=== PATIENT | female | born 1970 | race Caucasian/White ===

== ENCOUNTER 2020-03-03 12:21 | Outpatient (CLI) | payer OTHER, SELFPAY ==
[2020-03-03 14:13] LABS: Basophils Percent Auto 0.2 % (0.2-1.2); Eosinophils Absolute Auto 0.3 K/mm3 (0-0.3); Eosinophils Percent Auto 3.6 % (0-4.4); Hematocrit 41.2 % (37.0-47.0); Hemoglobin 13.4 g/dL (12.0-15.0); Immature Granulocyte Absolute 0.03 K/mm3 (0.00-0.031); Immature Granulocyte Percent A 0.4 % (0-0.5); Lymphocytes Absolute Auto 2.77 K/mm3 (0.9-3.2); Lymphocytes Percent Auto 33.5 % (18.3-44.2); Mean Corpuscular HGB Conc 32.5 g/dl (32-36); Mean Corpuscular Volume 101.5 fl (80-100); Mean Platelet Volume 9.1 fl (7.4-10.4); Monocytes Absolute Auto 0.7 K/mm3 (0.1-0.6); Neutrophils Absolute Auto 4.5 K/mm3 (1.3-6.7); Neutrophils Percent Auto 54.3 % (45.5-73.1); Platelet Count Result 266 k/mm3 (150-375); Red Blood Count 4.06 M/mm3 (4.2-5.4); Red Cell Distribution Width 12.2 % (11.5-14.5); White Blood Count 8.3 K/mm3 (4.5-10.0)
[2020-03-03 14:24] LABS: Alanine Aminotransferase 20 U/L (4-35); Albumin Level 4.8 g/dL (3.5-5.1); Alkaline Phosphatase 62 U/L (38-126); Aspartate Amino Transferase 37 U/L (14-36); Bilirubin,Total 0.6 mg/dL (0.2-1.3); Blood Urea Nitrogen 19 mg/dL (7-17); Calcium 9.8 mg/dL (8.4-10.2); Carbon Dioxide 30 mmol/L (22-30); Chloride 102 mmol/L (98-107); Cholesterol 214 mg/dL (0-200); Estimated Glomerular Filt Rate > 60; Glucose 148 mg/dL (65-105); HDL Direct 61 mg/dL; Sodium 139 mmol/L (137-145); Triglycerides 191 mg/dL (<150)
[2020-03-03 14:34] LABS: LDL Cholesterol Direct 116 mg/dL
== END 2020-03-03 12:22 | disposition home or self-care (01) ==
LOC: ANHLAB 12:25
PROVIDERS: PCP Internal Medicine; Visit Provider Nurse Practitioner
DX: Z13.228 Encounter for screening for other metabolic disorders (principal); Z13.220 Encounter for screening for lipoid disorders
CPT/HCPCS: 36415; 80053; 80061; 85025

== ENCOUNTER 2020-03-09 15:23 | Outpatient (CLI) | payer OTHER, SELFPAY ==
[2020-03-09 16:39] LABS: Thyroid Stimulating Hormone 0.473 uIU/mL (0.465-4.680)
[2020-03-09 16:59] LABS: Free T4 Free Thyroxine 0.83 ng/mL (0.78-2.19); Vitamin D 25 Hydroxy 64.9 ng/mL
[2020-03-09 17:03] LABS: Hemoglobin A1C 6.1 % (<5.7)
== END 2020-03-09 15:24 | disposition home or self-care (01) ==
PROVIDERS: PCP Internal Medicine; Visit Provider Clinical Nurse Specialist
DX: R53.83 Other fatigue (principal); R73.09 Other abnormal glucose
CPT/HCPCS: 36415; 82306; 83036; 84439; 84443

== ENCOUNTER → 2020-07-18 18:10 | Outpatient (CLI) | payer OTHER, SELFPAY ==
--- NOTE | ~2020-07-18 | XR_ITS ---
XR_CERV2-3V_CR DATE: 07/18/2020 18:58 INDICATION: Neck pain TECHNIQUE: Standing AP, open-mouth, lateral, swimmer views COMPARISON: None FINDINGS: There is straightening and mild reversal of cervical curvature. C1 and C2 are normally aligned and the odontoid process is intact. No fracture or dislocation or locked facet or prevertebral soft tissue swelling. There is minimal anterolisthesis at C2-3. There is mild loss of interspace height at C4-5. There is moderate degenerative disc disease at C5-6. There is moderately severe degenerative disease at C6-7. There is uncovertebral joint spurring at C5-C6 and particularly C6-7. IMPRESSION: Straightening/mild reversal of cervical curvature Multilevel degenerative disc disease Reviewed, dictated and finalized at Location A. Reviewed, dictated and finalized at location A. S CUTTER
== END ==
PROVIDERS: Visit Provider Chiropractor
DX: M47.812 Spondylosis without myelopathy or radiculopathy, cervical region (principal)
CPT/HCPCS: 72040

== ENCOUNTER 2020-08-15 17:21 | Outpatient (CLI) | payer OTHER, SELFPAY ==
--- NOTE | ~2020-08-15 | MM_ITS ---
EXAMINATION: MM screening jose antonio BI w lazaro HISTORY: Screening TECHNIQUE: Craniocaudal and mediolateral oblique 3-D tomosynthesis images were obtained and synthetic 2-D images were generated. CAD analysis was submitted and interpreted. COMPARISON: No prior mammogram is available for comparison at this institution. BREAST PARENCHYMAL COMPOSITION: There are scattered areas of fibroglandular density. FINDINGS: There is no evidence of suspicious mass, calcification, or architectural distortion to sugg est malignancy in either breast. There has been no suspicious interval change. IMPRESSION: 1. No mammographic evidence of malignancy. 2. Recommend routine screening mammography in one year. BI-RADS Category 1: Negative Reviewed, dictated and finalized at location A. SALES CONSULTANT
== END 2020-08-15 17:22 | disposition home or self-care (01) ==
PROVIDERS: Visit Provider Obstetrics & Gynecology Gynecology
DX: Z12.31 Encounter for screening mammogram for malignant neoplasm of breast (principal)
CPT/HCPCS: 77063; 77067

== ENCOUNTER → 2021-07-19 09:48 | Outpatient (CLI) | payer OTHER, SELFPAY ==
--- NOTE | ~2021-07-19 | US_ITS ---
US thyroid INDICATION: Thyroid goiter TECHNIQUE: Real-time sonographic images of the thyroid gland were obtained. COMPARISON: No prior studies for comparison. FINDINGS: The right thyroid lobe measures 4.3 x 1.1 x 1.2 cm. The left thyroid lobe measures 3.9 x 1 .1 x 1 cm. There is normal echotexture and echogenicity throughout the thyroid gland. No discrete nod ules identified. Normal vascular flow is present. IMPRESSION: 1. Normal thyroid without discrete nodule or abnormal vascularity. Reviewed, dictated and finalized at location A. F CLERK
== END ==
PROVIDERS: PCP Internal Medicine; Visit Provider Internal Medicine Endocrinology, Diabetes & Metabolism
DX: E04.9 Nontoxic goiter, unspecified (principal)
CPT/HCPCS: 76536

== ENCOUNTER 2021-09-12 15:44 | Outpatient (CLI) | payer OTHER, SELFPAY ==
--- NOTE | ~2021-09-12 | MM_ITS ---
EXAMINATION: MM screening jose antonio BI w lazaro HISTORY: Screening mammogram, family history of breast cancer in her mother and sister. TECHNIQUE: Craniocaudal and mediolateral oblique 3-D tomosynthesis images were obtained and synthetic 2-D images were generated. CAD analysis was submitted and interpreted. COMPARISON: 08/15/2020, 05/21/2019, 05/26/2018, 05/15/2018 BREAST PARENCHYMAL COMPOSITION: The breasts are heterogeneously dense, which may obscure small masses . FINDINGS: There is no evidence of suspicious mass, calcification, or architectural distortion to sugg est malignancy in either breast. There has been no suspicious interval change. IMPRESSION: 1. No mammographic evidence of malignancy. 2. Recommend routine screening mammography in one year. BI-RADS Category 1: Negative Reviewed, dictated and finalized at location A. AND DIE ENGINEER
== END 2021-09-12 15:45 | disposition home or self-care (01) ==
LOC: ANHIMG 15:47
PROVIDERS: PCP Internal Medicine; Visit Provider Obstetrics & Gynecology Gynecology
DX: Z12.31 Encounter for screening mammogram for malignant neoplasm of breast (principal)
CPT/HCPCS: 77063; 77067

== ENCOUNTER 2022-11-14 14:39 | Outpatient (CLI) | payer OTHER, SELFPAY ==
--- NOTE | ~2022-11-14 | MM_ITS ---
EXAMINATION: MM screening jose antonio BI w lazaro HISTORY: Screening mammogram, family history of breast cancer in her mother and sister. TECHNIQUE: Craniocaudal and mediolateral oblique 3-D tomosynthesis images were obtained and synthetic 2-D images were generated. CAD analysis was submitted and interpreted. COMPARISON: 09/12/2021, 08/15/2020, 05/21/2019 BREAST PARENCHYMAL COMPOSITION: The breasts are heterogeneously dense, which may obscure small masses . FINDINGS: No suspicious mass, calcification, or architectural distortion are identified in either kathy ast to suggest malignancy. There has been no suspicious interval change. IMPRESSION: 1. No mammographic evidence of malignancy. 2. Recommend routine screening mammography in one year. BI-RADS Category 1: Negative Reviewed, dictated and finalized at location A. GER CASE
== END 2022-11-14 14:40 | disposition home or self-care (01) ==
PROVIDERS: PCP Internal Medicine; Visit Provider Obstetrics & Gynecology Gynecology
DX: Z12.31 Encounter for screening mammogram for malignant neoplasm of breast (principal)
CPT/HCPCS: 77063; 77067

== ENCOUNTER 2023-06-26 10:36 | Outpatient (CLI) | payer OTHER, SELFPAY ==
--- NOTE | ~2023-06-26 | MMUS_ITS ---
EXAMINATION: MM diagnostic jose antonio LT w lazaro, US breast LT limited HISTORY: Left breast pain TECHNIQUE: Additional 3-D tomosynthesis images of the left breast were performed and synthetic 2-D im ages were generated. CAD analysis was submitted and interpreted. High resolution Limited left breast ultrasound was performed. COMPARISON: Comparison to multiple prior studies sequentially, with oldest reviewed study dated 03/2018. BREAST PARENCHYMAL COMPOSITION: Breast composed of scattered areas of fibroglandular density FINDINGS: MAMMOGRAPHIC FINDINGS: There are no suspicious masses, calcifications or architectural distortion in the left breast to sugg est malignancy. ULTRASOUND: Limited left breast ultrasound: Normal heterogeneous echotexture without focal solid or cystic mass. IMPRESSION: 1. No evidence for malignancy in the left breast. 2. Routine yearly screening mammogram and regular clinical breast examination are recommended. BI-RADS Category 1: Negative Reviewed, dictated and finalized at location A. IMPRESSION: 1. No evidence for malignancy in the left breast. 2. Routine yearly screening mammogram and regular clinical breast examination a re recommended. BI-RADS Category 1: Negative
[2023-06-26 12:24] LABS: Hematocrit 40.8 % (37.0-47.0); Hemoglobin 13.4 g/dL (12.0-15.0); Mean Corpuscular HGB Conc 32.8 g/dl (32-36); Mean Corpuscular Hemoglobin 33.6 pg (26-34); Mean Corpuscular Volume 102.3 fl (80-100); Mean Platelet Volume 8.8 fl (7.4-10.4); Platelet Count Result 284 k/mm3 (150-375); Red Blood Count 3.99 M/mm3 (4.2-5.4); Red Cell Distribution Width 13.1 % (11.5-14.5); White Blood Count 6.2 K/mm3 (4.5-10.0)
[2023-06-26 12:39] LABS: Alanine Aminotransferase 31 U/L (6-35); Alkaline Phosphatase 60 U/L (38-126); Anion Gap 9 mmol/L (8-16); Aspartate Amino Transferase 36 U/L (14-36); Bilirubin,Total 0.6 mg/dL (0.2-1.3); Blood Urea Nitrogen 21 mg/dL (7-17); Calcium 9.8 mg/dL (8.4-10.2); Carbon Dioxide 29 mmol/L (22-30); Chloride 100 mmol/L (98-107); Cholesterol 285 mg/dL (0-200); Estimated Glomerular Filt Rate > 60; Glucose 137 mg/dL (65-110); HDL Direct 88 mg/dL; Potassium 4.6 mmol/L (3.4-5.0); Sodium 138 mmol/L (137-145); Triglycerides 98 mg/dL (<150)
[2023-06-26 12:50] LABS: LDL Cholesterol Direct 143 mg/dL
[2023-06-26 13:08] LABS: Thyroid Stimulating Hormone 0.119 uIU/mL (0.465-4.680)
[2023-06-26 13:17] LABS: Free T4 Free Thyroxine 0.97 ng/mL (0.78-2.19)
[2023-06-26 13:48] LABS: Folic Acid > 20.0 ng/mL (2.76->20)
[2023-06-27 05:55] LABS: Hemoglobin A1C 5.6 % (<5.7)
== END 2023-06-26 10:37 | disposition home or self-care (01) ==
PROVIDERS: PCP Internal Medicine; Visit Provider Nurse Practitioner
DX: N64.4 Mastodynia (principal); E55.9 Vitamin D deficiency, unspecified; Z01.419 Encounter for gynecological examination (general) (routine) without abnormal findings
CPT/HCPCS: 36415; 76642; 77061; 77065; 80053; 80061; 82306; 82607; 82746; 83036; 84439; 84443; 85027; G0279

== ENCOUNTER 2024-01-29 15:40 | Outpatient (CLI) | payer OTHER, SELFPAY ==
--- NOTE | ~2024-01-29 | MM_ITS ---
EXAMINATION: MM screening jose antonio BI w lazaro HISTORY: Screening TECHNIQUE: Craniocaudal and mediolateral oblique 3-D tomosynthesis images were obtained and synthetic 2-D images were generated. CAD analysis was submitted and interpreted. COMPARISON: Comparison to multiple prior studies sequentially, with oldest reviewed study dated 05/21. BREAST PARENCHYMAL COMPOSITION: Not dense: There are scattered areas of fibroglandular density. FINDINGS: There are developing asymmetries bilaterally in the right breast with possible architectura l distortion superiorly on MLO view. The left breast is stable without evidence for malignancy. IMPRESSION: 1. Developing right breast asymmetries. 2. Additional mammographic views and possible breast ultrasound are recommended. BI-RADS Category 0: Incomplete: Needs additional imaging evaluation. Reviewed, dictated and finalized at location A. IMPRESSION: 1. Developing right breast asymmetries. 2. Additional mammographic views and possible breast ultrasound are recommended . BI-RADS Category 0: Incomplete: Needs additional imaging evaluation.
== END 2024-01-29 15:41 | disposition home or self-care (01) ==
PROVIDERS: PCP Internal Medicine; Visit Provider Obstetrics & Gynecology Gynecology
DX: Z12.31 Encounter for screening mammogram for malignant neoplasm of breast (principal); R92.8 Other abnormal and inconclusive findings on diagnostic imaging of breast
CPT/HCPCS: 77063; 77067

== ENCOUNTER 2024-03-05 10:51 | Outpatient (CLI) | payer OTHER, SELFPAY ==
--- NOTE | ~2024-03-05 | MM_ITS ---
EXAMINATION: MM diagnostic jose antonio RT w lazaro HISTORY: Asymmetric density right breast TECHNIQUE: Additional 3-D tomosynthesis spot compression images of the right breast were performed an d synthetic 2-D images were generated. CAD analysis was submitted and interpreted. COMPARISON: 01/29/2024, 11/14/2022, 09/12/2021 FINDINGS: There are scattered fibroglandular densities. There is a stable small circumscribed mass at the outer, lower right breast dating back to 2021, comp atible with benign finding. No other mass lesion or distortion seen. No suspicious microcalcification . A second area of asymmetric density effaces with spot compression. IMPRESSION: No mammographic evidence for malignancy. BI-RADS Category 2: Benign finding(s). Reviewed, dictated and finalized at location .
== END 2024-03-05 10:52 | disposition home or self-care (01) ==
LOC: ANHIMG 10:53
PROVIDERS: PCP Internal Medicine; Visit Provider Obstetrics & Gynecology Gynecology
DX: R92.8 Other abnormal and inconclusive findings on diagnostic imaging of breast (principal)
CPT/HCPCS: 77061; 77065; G0279

== ENCOUNTER 2024-04-22 12:26 | Outpatient (CLI) | payer OTHER, SELFPAY ==
--- NOTE | ~2024-04-22 | XR_ITS ---
XR_CERV2-3V_CR Ordering provider: GLO Dominguez History: . M54.12 - Radiculopathy, cervical region . Comparison: July 18, 2020 FINDINGS: VERTEBRAL BODIES: Normal height and alignment. No visible fracture or subluxation. The dens is intact . Degenerative changes of the spine. DISK SPACES: Narrowing of the disc C5-C6 and C6-C7. Uncovertebral joint osteoarthritic changes at the same 2 levels. Multilevel facet joint disease. PARASPINOUS SOFT TISSUES: No prevertebral soft tissue swelling. IMPRESSION: No acute osseous abnormality cervical spine. Multilevel degenerative disc disease. Reviewed, dictated and finalized at location A.
== END 2024-04-22 12:27 ==
PROVIDERS: PCP Clinical Nurse Specialist; Visit Provider Clinical Nurse Specialist
DX: M54.12 Radiculopathy, cervical region (principal); M50.30 Other cervical disc degeneration, unspecified cervical region
CPT/HCPCS: 72040

== ENCOUNTER 2025-02-18 10:02 | Outpatient (CLI) | payer OTHER, SELFPAY ==
--- NOTE | ~2025-02-18 | MM_ITS ---
EXAMINATION: MM screening jose antonio BI w lazaro HISTORY: Screening TECHNIQUE: Craniocaudal and mediolateral oblique 3-D tomosynthesis images were obtained and synthetic 2-D images were generated. CAD analysis was submitted and interpreted. COMPARISON: Comparison to multiple prior studies sequentially, with oldest reviewed study dated 04/2020. BREAST PARENCHYMAL COMPOSITION: Not dense: There are scattered areas of fibroglandular density. FINDINGS: There is no evidence of suspicious mass, calcification, or architectural distortion to sugg est malignancy in either breast. There has been no suspicious interval change. IMPRESSION: 1. No mammographic evidence of malignancy. 2. Recommend routine screening mammography in one year. BI-RADS Category 1: Negative Reviewed, dictated and finalized at location B.
--- OUTSIDE RECORDS SUMMARY | 2025-02-18 10:13 | XMS_ITS | Clinical Summary ---
Author Organization [facility] Address [address] [place] [address] Care Team Providers Care Broomcorn Scraper Name Role Phone Brennan Dubon DO Primary Care Provider [phone] Allergies Active Allergy Reactions Criticality Noted Date Comments Cefaclor Hives Medium Per chart records, has received amoxicillin and Augmentin before Seldane-D Hives Medium Medications buPROPion XL (WELLBUTRIN XL) 300 mg 24 hr tablet Take 1 tablet (300 mg total) by mouth daily Active spironolactone (ALDACTONE) 100 mg tablet Take 2 tablets (200 mg total) by mouth daily Takes 200 mg daily Active aspirin 81 mg enteric coated tablet Take 1 tablet (81 mg total) by mouth daily Taking bid post op knee scope 10/17/22 taking one daily Active gabapentin (NEURONTIN) 300 mg capsule Take 1 capsule (300 mg total) by mouth 3 (three) times a day 90 capsule 3 09/13/2023 Active meloxicam (Mobic) 15 mg tabletIndicatio ns:Osteoarthrit is Take 1 tablet (15 mg total) by mouth daily To be taken with food 90 tablet 2 10/17/2023 Active Active Problems Problem Noted Date Diagnosed Date Hyperlipidemia 08/24/2023 Post-traumatic osteoarthritis of one knee, left 08/24/2023 Bodies, loose, joint, knee, left 07/18/2023 Degenerative tear of lateral meniscus of left kn ee 07/18/2023 Post-traumatic osteoarthritis of left knee 07/18 Postoperative seroma of subc utaneous tissue after non-dermatologic procedure 09/11/2018 Overview (09/11/2018): Added automatically from request for surgery [id number] Localized adiposity 01/18/2014 Immunizations Immunization Administration Dates Next Due Influenza, Quadrivalent, Spl it, Preservative Free, Intramuscular 06/26/2018 Surgical History Surgery Date Site/Laterality Comments LUMBAR DISC SURGERY L5 MENISCECTOMY Bilateral LAPAROSCOPY for endometriosis Medical History Medical History Date Comments Hyperlipidemia Degenerative tear of lateral meniscus of left kn ee Post-traumatic osteoarthritis of one knee, left Family History Medical History Relation Name Comments Lung cancer Father Breast cancer Mother Anesthesia problems Neg Hx Relation Name Status Comments Father Mother Social History Tobacco Use Types Packs/Day Years Used Date Smoking Tobacco: Never Smokeless Tobacco: Never Tobacco Cessation:Counseling Given: Not Answered Alcohol Use Standard Drinks/Week Comments Yes 0 (1 standard drink = 0.6 oz pur e alcohol) couple drinks a month AUDIT-C Answer Date Recorded Q1: How often do you have a drink containing alc ohol? 2-4 times a month 08/28/2023 Q2: How many drinks containi ng alcohol do you have on a typical day when you are drinking? 3 or 4 08/28/2023 Q3: How often do you have si x or more drinks on one occasion? Never 08/28/2023 Personal Safety Answer Date Recorded Have you ever been in or are you currently in a harmful physical or emotional relationship or is someone making you feel afraid or unsafe? Denies 08/28/2023 Comments No Sex and Gender Information Value Date Recorded Sex Assigned at Not on file Legal Sex Female 4:16 AM MOTTLER OPERATOR Gender Identity Female 12/02/2018 9:28 AM CDT Sexual Orientation Not on file Obstetrics History Last Filed Vital Signs Vital Sign Reading Time Taken Comments Blood Pressure 136/74 08/28/2023 10:55 AM MOTTLER OPERATOR Pulse 83 08/28/2023 10:55 AM MOTTLER OPERATOR Temperature 36.8 C (98.3 F) 08/28/2023 9:27 AM MOTTLER OPERATOR Respiratory Rate 15 08/28/2023 10:55 AM MOTTLER OPERATOR Oxygen Saturation 100% 08/28/2023 10:55 AM MOTTLER OPERATOR Inhaled Oxygen Concentration - - Weight 82.1 kg (181 lb) 10/17/2023 10:19 AM MOTTLER OPERATOR stated Height 172.7 cm (5' 8) 10/17/2023 10:19 AM MOTTLER OPERATOR Body Mass Index 27.52 10/17/2023 10:19 AM MOTTLER OPERATOR Plan of Treatment Health Maintenance Due Date Last Done Comments Breast Cancer Screening-Mammogram 1971 Cervical Cancer Screening 1971 Colon Cancer Screening-Colonoscopy 1971 Depression Screening 1971 Hepatitis C Screening 1971 DTaP/Tdap/Td Vaccine (1 - Tdap) 1982 Hepatitis B Screening 1989 Regular Well Visit/Exam 18-64 1989 Zoster Vaccine (1 of 2) 2021 Influenza Vaccine (Season Ended) 2025 07/26/2022, 06/07/2020, 07/12/2018, Additional history exists Pneumococcal vaccine <65 Aged Out No longer eligible based on patient's age to complete this topic Insurance [facility] CLAIMS [facility] CLAIMS Care Teams Broomcorn Scraper Relationship Specialty Start Date End Date Brennan Dubon DO PCP - General 02/19/17
--- OUTSIDE RECORDS SUMMARY | 2025-02-18 10:13 | XMS_ITS | Clinical Summary ---
Author Organization [facility] Address [address] [place] [address] Phone Care Team Providers Care Call Or Contact Centre Team Leader Name Role Phone Brennan Dubon Primary Care Provider Allergies No known active allergies Medications buPROPion (WELLBUTRIN) 75 mg tablet Take 75 mg by mouth daily. Active cetirizine (ZyrTEC) 10 mg tablet Take 10 mg by mouth daily. Active ergocalciferol (VITAMIN D2) 50,000 unit capsule Take 2,000 Units by mouth daily. Active diphenhydrAMINE (BENADRYL) 25 mg tablet Take 25 mg by mouth every 6 hours as needed for Allergies. Active HYDROcodone-taylor taminophen (NORCO) 5-325 mg tabletIndicatio ns:Acute tear lateral meniscus, right, subsequent encounter Take 2 Tablets by mouth every 4 hours as needed for Pain, Moderate. Max Daily Amount: 12 Tablets 50 Tablet 12/17/2018 Active celecoxib (CeleBREX) 200 mg capsule Take 1 Capsule (200 mg) by mouth 2 times daily. 60 Capsule 12/17/2018 Active Active Problems Problem Noted Date Diagnosed Date Acute tear lateral meniscus, right, subsequent e ncounter 12/15/2018 Immunizations Immunization Administration Dates Next Due Influenza Seasonal Unspecified Formulation IM Social History Tobacco Use Types Packs/Day Years Used Date Smoking Tobacco: Never Smokeless Tobacco: Never Alcohol Use Standard Drinks/Week Comments Yes 0 (1 standard drink = 0.6 oz pur e alcohol) OCC Comments Unknown Sex and Gender Information Value Date Recorded Sex Assigned at Not on file Legal Sex Female 8:15 AM DISTRIBUTION ANALYST Gender Identity Not on file Sexual Orientation Not on file Last Filed Vital Signs Vital Sign Reading Time Taken Comments Blood Pressure 152/86 12/17/2018 6:25 PM CDT Pulse 74 12/17/2018 6:25 PM CDT Temperature 36.7 C (98.1 F) 12/17/2018 6:25 PM CDT Respiratory Rate 16 12/17/2018 6:25 PM CDT Oxygen Saturation 98% 12/17/2018 6:25 PM CDT Inhaled Oxygen Concentration - - Weight 98.9 kg (218 lb) 12/17/2018 10:09 AM CDT Height 172.7 cm (5' 8) 12/17/2018 10:09 AM CDT Body Mass Index 33.15 12/17/2018 10:09 AM CDT Plan of Treatment Health Maintenance Due Date Last Done Comments DTAP/TDAP/TD VACCINES (1 - Tdap) 1990 HEPATITIS B VACCINES (1 of 3 - 19+ 3-dose series) 09/10 HPV/Cotest (21-29) 1992 CERVICAL CANCER SCREENING 2001 HPV/Cotest (30-65) 2001 PAP SMEAR 2001 BREAST CANCER SCREENING 2011 COLORECTAL SCREENING 2016 Colorectal Cancer Screening 2016 FIT-DNA Q 3 years 2016 FIT/FOBT Q 1 year 2016 Flex Sig/CT Colonography Q 5 years 2016 ZOSTER VACCINE (1 of 2) 2021 INFLUENZA VACCINE (#1) 2024 07/12/2018 Medical Devices Implanted Type Area Senior Structural Engineer Device Identifier Shelf Expiration Date Model / Serial / Lot Iud Oral Insurance [facility] [place] [id number] [facility] Advance Directives For more information, please contact: [phone] * Full Code (Latest Code Status on File) Date Activated Date Inactivated Comments 12/17/2018 11:55 AM 12/17/2018 8:50 PM * Full Code Date Activated Date Inactivated Comments 12/17/2018 10:31 AM 12/17/2018 11:55 AM Care Teams Call Or Contact Centre Team Leader Relationship Specialty Start Date End Date Brennan Dubon DO [address] [id number] PCP - General Internal Medicine 12/17/18
--- OUTSIDE RECORDS SUMMARY | 2025-02-18 10:13 | XMS_ITS | Referral Summary ---
Author Organization [facility] Address [address] [place] [address] Care Team Providers Care Supercharge Repair Supervisor Name Role Phone Brennan Dubon DO Primary Care Provider [phone] Allergies Active Allergy Reactions Criticality Noted Date [...] (09/11/2018): Added automatically from request for surgery [id number] Localized adiposity 01/18/2014 Immunizations Immunization Administration Dates Next Due Influenza, Quadrivalent, Spl it, Preservative Free, Intramuscular 06/26/2018 Social History Tobacco Use Types Packs/Day Years [...] on file Legal Sex Female 4:16 AM GYM TEACHER Gender Identity Female 12/02/2018 9:28 AM CDT Sexual Orientation Not on file Last Filed Vital Signs Vital Sign Reading Time Taken Comments Blood Pressure 136/74 08/28/2023 10:55 AM GYM TEACHER Pulse 83 08/28/2023 10:55 AM GYM TEACHER Temperature 36.8 C (98.3 F) 08/28/2023 9:27 AM GYM TEACHER Respiratory Rate 15 08/28/2023 10:55 AM GYM TEACHER Oxygen Saturation 100% 08/28/2023 10:55 AM GYM TEACHER Inhaled Oxygen Concentration - - Weight 82.1 kg (181 lb) 10/17/2023 10:19 AM GYM TEACHER stated Height 172.7 cm (5' 8) 10/17/2023 10:19 AM GYM TEACHER Body Mass Index 27.52 10/17/2023 10:19 AM GYM TEACHER Plan of Treatment Not on file Insurance [facility] CLAIMS [facility] CLAIMS Care Teams Supercharge Repair Supervisor Relationship Specialty Start Date End Date Brennan Dubon DO PCP - General 02/19/17
--- OUTSIDE RECORDS SUMMARY | 2025-02-18 10:13 | XMS_ITS | Continuity of Care Document ---
Author Organization [facility] Address [address] [facility] [address] [place] [address] Phone Care Team Providers Care It Integration Architect Name Role Phone Lai Vizcarra MD Unavailable Unavailable Allergies, Adverse Reactions, Alerts Substance Reaction Status Criticality No Known Allergies Active No Inform ation Medications Medication Instructions Dosage Effective Dates (start - stop) Status Comments ibuprofen 200 mg capsule - Activ e Procedures Procedure Date POSTOP FOLLOW-UP VISIT KNEE ARTHROSCOPY/SURGERY OFFICE/OUTPATIENT VISIT EST OFFICE/OUTPATIENT VISIT NEW Advance Directives Directive Yes / No Effective Date File Name No Information Encounters Encounter Description Practice Location Reason(s) For Visit Diagnoses Date Provider Providers Copied on Encounter [facility], [address] [place] [address], [facility], [phone] [facility] [address] No Information 9 Carmita Hoyt. [address] [place] [address], [id number] . tel: [phone] [facility], [address] [place] [address], [id number], [place] tel:[phone] [facility] RT KNEE SCOPE 4\11\19 (chief complaint) Bucket-handle tear of lateral meniscus of right knee as current injury, subsequent encounter 9 Carmita Hoyt. [address] [place] [address], [id number] . tel: [phone] Referring Provider: Brennan Lopez, [address], [place], [address]. tel:[phone] [facility], [address] [place] [address], [facility], tel:[phone] [facility] Other tear of lateral meniscus, current injury, right knee, subsequent encounterBucke t-handle tear of lateral meniscus, current injury, right knee, initial encounter 9 Carmita Hoyt. [address] [place] [address], [id number] . tel: [phone] OFFICE/OUTPA TIENT VISIT [facility], [address] [place] [address], [facility], tel:[phone] [facility] Other tear of lateral meniscus, current injury, right knee, subsequent encounter 9 Carmita Hoyt. [address] [place] [address], [id number] . [phone] Referring Provider: Brennan Lopez, [address], [place], [address]. tel:[phone] OFFICE/OUTPA TIENT VISIT [facility], [address] [place] [address], [id number], tel:[phone] [facility] Body mass index (BMI) 32.0-32.9, adultElevated blood-pressure reading, w/o diagnosis of htnOther tear of lateral meniscus of right knee as current injury, initial encounter 9 Carmita Hoyt. [address] [place] [address], [id number] . tel: [phone] Referring Provider: Brennan Lopez, [address], [place], [address]. tel:[phone] Family History Family Member Type Diagnosis Age At Onset Mother Problem (finding) Alive and well Payers Payer name Insurance type Covered republican ID Linda brennan(s) [facility] [id number] Social History Type Description Quantity Date Captured Comments Alcohol Use Details Unknown Caffeine Use Details Unknown Tobacco Use Status No Information Smoking Status No Information Sex Female Chief Complaint And Reason For Visit No Information Reason For Referral Reason For Referral No Information Plan Of Treatment Date Type Action Status Goal Lifestyle education efrain g diet completed Referral Ordered: MRI ANY JT LXTR C-MATRL ordered Referral Ordered: RADEX KNE COMPL 4/MORE VIEWS RT ordered History Of Present Illness Encounter Date Complaint History Of Prese nt Illness RT KNEE SCOPE 4\11\19 Functional Status Date Functional Assessmen t No Information Instructions Date Instruction Additional Infor mation Apply ice as tolerated. Related to Bucket-handle tear of lateral meniscus of right knee as current injury, subsequent encounter Activity as tolerated Related to Bucket-handle tear of lateral meniscus of right knee as current injury, subsequent encounter Apply ice as tolerated. Related to Other tear of lateral meniscus, current injury, right knee, subsequent encounter Activity as tolerated Related to Other tear of lateral meniscus, current injury, right knee, subsequent encounter Giving encouragement to exercise Related to Body mass index (BMI) 32.0-32.9, adult Lifestyle education regarding di et Related to Body mass index (BMI) 32.0-32.9, adult Giving encouragement to exercise Related to Elevated blood-pressure reading, without diagnosis of hypertension Lifestyle education regarding diet (procedure) Related to Elevated blood-pressure reading, without diagnosis of hypertension Apply ice as tolerated. Related to Other tear of lateral meniscus of right knee as current injury, initial encounter Activity as tolerated Related to Other tear of lateral meniscus of right knee as current injury, initial encounter Assessments Type Assessment Date No Information Patient Care Teams Name Effective Dates (start - stop) Status Members No Information
== END 2025-02-18 10:03 | disposition home or self-care (01) ==
LOC: ANHIMG 10:04
PROVIDERS: PCP Clinical Nurse Specialist; Visit Provider Obstetrics & Gynecology Gynecology
DX: Z12.31 Encounter for screening mammogram for malignant neoplasm of breast (principal)
CPT/HCPCS: 77063; 77067

== ENCOUNTER 2025-03-18 11:21 | Outpatient (CLI) | payer OTHER, SELFPAY ==
--- OUTSIDE RECORDS SUMMARY | 2025-03-18 11:23 | XMS_ITS | Continuity of Care Document ---
Author Organization [facility] Address [address] [facility] [address] [place] [address] Phone Care Team Providers Care Braille Teacher Name Role Phone Lai Vizcarra MD Unavailable [...] Diagnoses Date Provider Providers Copied on Encounter [facility], [address] [place] [address], [facility], [phone] [facility] [address] No Information 9 Carmita Hoyt. [address] [place] [address], [id number] . tel: [phone] [facility], [address] [place] [address], [id number], [place] tel:[phone] [facility] RT KNEE SCOPE 4\11\19 (chief complaint) Bucket-handle tear of lateral meniscus of right knee as current injury, subsequent encounter 9 Carmita Hoyt. [address] [place] [address], [id number] . tel: [phone] Referring Provider: Brennan Lopez, [address], [place], [address]. tel:[phone] [facility], [address] [place] [address], [facility], tel:[phone] [facility] Other tear of lateral meniscus, current injury, right knee, subsequent encounterBucke t-handle tear of lateral meniscus, current injury, right knee, initial encounter 9 Carmita Hoyt. [address] [place] [address], [id number] . tel: [phone] OFFICE/OUTPA TIENT VISIT [facility], [address] [place] [address], [facility], tel:[phone] [facility] Other tear of lateral meniscus, current injury, right knee, subsequent encounter 9 Carmita Hoyt. [address] [place] [address], [id number] . tel:[phone] Referring Provider: Brennan Lopez, [address], [place], [address]. tel:[phone] OFFICE/OUTPA TIENT VISIT [facility], [address] [place] [address], [id number], tel:[phone] [facility] Body mass index (BMI) 32.0-32.9, adultElevated blood-pressure reading, w/o diagnosis of htnOther tear of lateral meniscus of right knee as current injury, initial encounter 9 Carmita Hoyt. [address] [place] [address], [id number] . tel: [phone] Referring Provider: Brennan Lopez, [address], [place], [address]. tel:[phone] Family History Family Member Type Diagnosis Age At Onset Mother Problem (finding) Alive and well Payers Payer name Insurance type Covered democrat ID Linda brennan(s) [facility] [id number] Social History Type Description Quantity Date Captured [...]
--- OUTSIDE RECORDS SUMMARY | 2025-03-18 11:23 | XMS_ITS | Clinical Summary ---
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 Gender Identity Not on file Sexual Orientation [...] (1 of 2) 2021 INFLUENZA VACCINE (#1) 2025 07/12/2018 Medical Devices Implanted Type Area E Commerce Project Manager Device Identifier Shelf Expiration Date Model / Serial / Lot Iud Oral Insurance [place] [id number] [facility] Advance Directives For more information, please contact: [phone] * Full Code (Latest Code Status on File) Date Activated Date Inactivated Comments 12/17/2018 11:55 AM 12/17/2018 8:50 PM * Full Code Date Activated Date Inactivated Comments 12/17/2018 10:31 AM 12/17/2018 11:55 AM Care Teams Sweatband Separator Relationship Specialty Start Date End Date Brennan Dubon DO [address] [id number] PCP - General Internal Medicine 12/17/18
--- OUTSIDE RECORDS SUMMARY | 2025-03-18 11:24 | XMS_ITS | Clinical Summary ---
Author Organization [facility] Address [address] [place] [address] Care Team Providers Care Carbide Die Maker Name Role Phone Unavailable Primary Care Provider Unavailabl e Allergies No known active allergies Medications albuterol sulfate HFA 108 (90 Base) MCG/ACT inhaler INL 1 TO 2 PFS PO Q 4 TO 6 H PRF SOB OR WHZ 0 Active buPROPion XL 150 MG 24 hr tablet 0 Active cetirizine 10 MG tablet Take 10 mg by mouth daily. Active estradiol 0.5 MG tablet Take 0.25 mg by mouth daily. 0 Active azithromycin 250 MG tabletIndication s:Acute bronchitis, unspecified organism Take 2 tablets by mouth on day one then 1 daily for four days. 6 tablet 0 Active albuterol sulfate HFA (VENTOLIN HFA) 108 (90 Base) MCG/ACT inhalerIndicatio ns:Acute bronchitis, unspecified organism Inhale 2 puffs into the lungs every 6 (six) hours as needed for Wheezing or Shortness of breath. 18 g 1 0 Active Active Problems Problem Noted Date Diagnosed Date Acute bronchitis, unspecified organism 0 Immunizations Immunization Administration Dates Next Due Flucelvax 6 Months+ (Prefill ed Syringe) 07/10/2017 Fluzone 6 Months+ Quad (0.5 mL Prefilled Syringe) 07/26/2022 Influenza (Generic) 07/12/2018 Influenza Adult (Generic) 06/25/2018,11/2015,07/10/2015,2013,08/20/2013,09/24/2012 Social History Tobacco Use Types Packs/Day Years Used Date Smoking Tobacco: Never Smokeless Tobacco: Never Tobacco Cessation:Counseling Given: No Comments Unknown Sex and Gender Information Value Date Recorded Sex Assigned at Not on file Legal Sex Female 10:59 AM CDT Gender Identity Not on file Sexual Orientation Not on file Last Filed Vital Signs Vital Sign Reading Time Taken Comments Blood Pressure 140/90 12/22/2019 12:35 PM CDT Pulse 74 12/22/2019 12:35 PM CDT Temperature 35.6 C (96 F) 12/22/2019 12:35 PM CDT Respiratory Rate 20 12/22/2019 12:35 PM CDT Oxygen Saturation 100% 12/22/2019 12:35 PM CDT Inhaled Oxygen Concentration - - Weight 94.3 kg (208 lb) 12/22/2019 12:35 PM CDT Height - - Body Mass Index - - Plan of Treatment Health Maintenance Due Date Last Done Comments Cervical Cancer Screening Pa p Smear (Age 30 to 64) Every 3 Years 1971 Colorectal Cancer Screening Colonoscopy (10 Years) 1971 Annual Physical 1974 Hepatitis C 1989 DTaP, Tdap and Td Vaccines ( 1 - Tdap) 1990 Hepatitis B Vaccines (1 of 3 - 19+ 3-dose series) 1990 Cervical Cancer Screening Pa p with HPV Testing (Age 30 to 64) Every 5 Years 2001 Cervical Cancer Screening with HPV 2001 Mammogram Screening 2011 Pneumococcal Vaccine: 50+ Ye ars (1 of 1 - PCV) 2021 Zoster Vaccines (1 of 2) 2021 COVID-19 Vaccine (1 - 2023-2 5 season) 2024 Meningococcal B Vaccine Aged Out No l onger eligible based on patient's age to complete this topic Meningococcal Vaccine Aged Out No lucy savana eligible based on patient's age to complete this topic RSV Immunizations Under 20 Months Aged Out No longer eligible based on patient's age to complete this topic Insurance [facility]
--- OUTSIDE RECORDS SUMMARY | 2025-03-18 11:24 | XMS_ITS | Clinical Summary ---
Author Organization [facility] Address [address] [place] [address] Care Team Providers Care Power Nut Runner Operator Name Role Phone Brennan Dubon DO Primary Care Provider [phone] Allergies Active Allergy Reactions Criticality Noted Date [...] (09/11/2018): Added automatically from request for surgery [id number] Localized adiposity 01/18/2014 Immunizations Immunization Administration Dates [...] on file Legal Sex Female 4:16 AM LEADERSHIP COACH Gender Identity Female 12/02/2018 9:28 AM CDT Sexual Orientation Not on file Obstetrics History Last Filed Vital Signs Vital Sign Reading Time Taken Comments Blood Pressure 136/74 08/28/2023 10:55 AM LEADERSHIP COACH Pulse 83 08/28/2023 10:55 AM LEADERSHIP COACH Temperature 36.8 C (98.3 F) 08/28/2023 9:27 AM LEADERSHIP COACH Respiratory Rate 15 08/28/2023 10:55 AM LEADERSHIP COACH Oxygen Saturation 100% 08/28/2023 10:55 AM LEADERSHIP COACH Inhaled Oxygen Concentration - - Weight 82.1 kg (181 lb) 10/17/2023 10:19 AM LEADERSHIP COACH stated Height 172.7 cm (5' 8) 10/17/2023 10:19 AM LEADERSHIP COACH Body Mass Index 27.52 10/17/2023 10:19 AM LEADERSHIP COACH Plan of Treatment Health Maintenance Due Date [...] patient's age to complete this topic Insurance [employer] CLAIMS [employer] Care Teams Power Nut Runner Operator Relationship Specialty Start Date End Date Brennan Dubon DO PCP - General 02/19/17
--- OUTSIDE RECORDS SUMMARY | 2025-03-18 11:24 | XMS_ITS | Referral Summary ---
Author Organization [facility] Address [address] [place] [address] Care Team Providers Care Review Appraiser Name Role Phone Brennan Dubon DO Primary Care Provider +1- [phone] Allergies Active Allergy Reactions Criticality Noted Date [...] (09/11/2018): Added automatically from request for surgery [id number] Localized adiposity 01/18/2014 Immunizations Immunization Administration Dates [...] on file Legal Sex Female 4:16 AM VENDING MECHANIC Gender Identity Female 12/02/2018 9:28 AM CDT Sexual Orientation Not on file Last Filed Vital Signs Vital Sign Reading Time Taken Comments Blood Pressure 136/74 08/28/2023 10:55 AM VENDING MECHANIC Pulse 83 08/28/2023 10:55 AM VENDING MECHANIC Temperature 36.8 C (98.3 F) 08/28/2023 9:27 AM VENDING MECHANIC Respiratory Rate 15 08/28/2023 10:55 AM VENDING MECHANIC Oxygen Saturation 100% 08/28/2023 10:55 AM VENDING MECHANIC Inhaled Oxygen Concentration - - Weight 82.1 kg (181 lb) 10/17/2023 10:19 AM VENDING MECHANIC stated Height 172.7 cm (5' 8) 10/17/2023 10:19 AM VENDING MECHANIC Body Mass Index 27.52 10/17/2023 10:19 AM VENDING MECHANIC Plan of Treatment Not on file Insurance [facility] CLAIMS [facility] CLAIMS Care Teams Review Appraiser Relationship Specialty Start Date End Date Brennan Dubon DO PCP - General 02/19/17
--- OUTSIDE RECORDS SUMMARY | 2025-03-18 11:24 | XMS_ITS | Data Portability ---
Author Organization [place] [employer], Main Office Address [address] [place] [address] Assessment No assessment recorded. Plan of Treatment Reminders Order Date Submit Date Provider Last Modified By Organization Details Last Modified Time Details Appointments None recorded. Lab estradiol, serum 2022 023 [employer] [facility], [address], [place], [address], 3 12:48:46 progesteron e, serum 2022 023 [employer] [facility], [address], [place], [address], 3 12:48:49 lh + FSH, serum 2022 023 [employer] [facility], [address], [place], [address], 3 12:48:47 cortisol, serum or plasma 2022 023 [employer] [facility], [address], [place], [address], 3 12:48:50 acth, plasma 2022 023 [employer] [facility], [address], [place], [address], 3 12:48:49 HbA1c (hemoglobin A1c), blood 2022 023 [employer] [facility], [address], [place], [address], 3 12:48:45 insulin, serum 2022 023 [employer] [facility], [address], [place], [address], 3 12:48:50 CMP, serum or plasma 2022 023 [employer] [facility], [address], [place], [address], 3 12:48:47 TSH + free T4, serum 2022 023 [employer] [facility], [address], [place], [address], 3 12:48:48 lipid panel, serum 2022 023 [employer] [facility], [address], [place], [address], 3 12:48:51 Referral None recorded. Procedures None recorded. Surgeries None recorded. Imaging None recorded. Medication Orders spironolact one 100 mg tablet 2022 023 [email or web address] [facility], [address] [place] [address], [address], 3 10:51:13 Patient TargetsNo targets recorded. Patient InstructionsNo instructions recorded. Reason for Referral None Reported. Results Created Date Observation Date Name Description Value Unit Range Abnormal Flag Note LastModifiedBy Organization Detail LastModifiedTime 07/28/20 21 07/30/2021 TSH+F REE T4 TSH 4.37 mIU/L normal Refer ence Range > or = 20 Years 0.40- 4.50 Pregn octavio Range s First trime ster 0.26- 2.66 Secon d trime ster 0.55- 2.73 Third trime ster 0.43- 2.91 Not Available [facility] [address] [place], [address], 07/30/2021 20:17:20 07/28/20 21 07/30/2021 TSH+F REE T4 T4, free 1.0 NG/dL 0.8-1. 8 normal Not Available [address], [address], 07/30/2021 20:17:20 07/28/20 21 07/30/2021 T3, FREE T3, free 2.9 pg/mL 2.3-4. 2 normal Not Available [address] [address] [place], [address], 07/30/2021 20:17:19 07/28/20 21 07/30/2021 VITAM IN B12/F OLATE , SERUM PANEL vitamin B12 495 pg/mL 200-11 00 normal Not Available [address], [address], 07/30/2021 20:17:18 07/28/20 21 07/30/2021 VITAM IN B12/F OLATE , SERUM PANEL folate, serum 12.7 NG/mL normal Refer ence Range Low: <3.4 Borde rline : 3.4-5 .4 Betty l: >5.4 Not Available [address], [address], 07/30/2021 20:17:18 07/28/20 21 07/30/2021 INSUL IN insulin 7.9 uIU/m L normal Refer ence Range < or = 19.6 Risk: Optim al < or = 19.6 Moder ate NA High >19.6 Adult cardi ovasc ular event risk categ ory cut point s (opti mal, moder ate, high) are based on [facility] popul ation data from 08/27 11. This insul in assay shows stron g cross -reac tivit y for some insul in analo gs (lisp ro, aspar t, and glarg ine) and much lower cross -reac tivit y with other s (dete ezra, gluli sine) . Not Available [facility] [address], [place], [address], 07/30/2021 20:17:17 07/28/20 21 07/30/2021 DHEA SULFA TE DHEA sulfate 156 mcg/d L 19-231 normal DHEA- S value s fall with advan cing age. For refer ence, the refer ence inter vals for 31-40 year old patie nts are: Male: 106-4 64 mcg/d L Femal e: 23-26 6 mcg/d L Not Available [facility] [address] [place], [address], 07/30/2021 20:17:16 07/28/20 21 07/30/2021 THYRO ID PEROX IDASE ANTIB ODIES thyroid peroxidase antibodies <1 IU/mL <9 normal Not Available [facility] [address] [place], [address], 07/30/2021 20:17:16 07/28/20 21 07/30/2021 ANGEL SCR, IFA, W/REF L TITER /FANTA TAMMIE/R HEUMA TOID ARTHR ITIS PANEL 1 ANGEL screen, ifa negati ve negati ve normal ANGEL IFA is a first line scree n for detec ting the prese nce of up to appro ximat demetrio 150 autoa ntibo dies in vario us autoi mmune disea ses. A negat vanessa ANGEL IFA resul t sugge sts an ANGEL-a ssoci ated autoi mmune disea se is not prese nt at this time, but is not defin itive . If there is high clini carline suspi cion for Sjogr en's syndr ome, testi ng for anti- SS-A/ Ro antib esther shoul d be consi dered . Anti- Nakita-1 antib esther shoul d be consi dered for clini gonsalo suspe cted infla mmato ry myopa joanne . AC-0: Negat vanessa Inter natio nal Conse nsus on ANGEL Patte rns (http s://d oi.or g/10. 1515/ cclm- 2017- 0052) For addit ional infor mike torrez e refer to http: //huy anuglo ics.c om/fa q/FAQ 177 (This link is being provi ded for infor ada torrez/ educmonie joseph l purpo ses only. ) Not Available [address] [address] [place], [address], 07/30/2021 20:17:15 07/28/20 21 07/30/2021 ANGEL SCR, IFA, W/REF L TITER /FANTA TAMMIE/R HEUMA TOID ARTHR ITIS PANEL 1 rheumatoid factor <14 IU/mL <14 normal Not Available [address] [address] [place], [address], 07/30/2021 20:17:15 07/28/20 21 07/30/2021 ANGEL SCR, IFA, W/REF L TITER /FANTA TAMMIE/R HEUMA TOID ARTHR ITIS PANEL 1 cyclic citrullinate d peptide (ccp) Ab (IgG) <16 units normal Refer ence Range Negat vanessa: <20 Weak Posit vanessa: 20-39 Moder ate Posit vanessa: 40-59 Stron g Posit vanessa: >59 Not Available [address] [address] [place], [address], 07/30/2021 20:17:15 07/28/20 21 07/30/2021 ANGEL SCR, IFA, W/REF L TITER /FANTA TAMMIE/R HEUMA TOID ARTHR ITIS PANEL 1 interpretati on There is no serol ogic evide nce for rheum atoid arthr itis. The RF and CCP tests each have a sensi tivit y for estab lishe d rheum atoid arthr itis of appro ximat demetrio 65-70 %. Not Available [address] [address] [place], [address], 07/30/2021 20:17:15 07/28/20 21 07/30/2021 CBC (INCL UDES DIFF/ PLT) white blood cell count 6.3 thous and/u L 3.8-10 .8 normal Not Available [address], [address], 07/30/2021 20:17:14 07/28/20 21 07/30/2021 CBC (INCL UDES DIFF/ PLT) red blood cell count 3.73 camilla on/uL 3.80-5 .10 low Not Available [address], [address], 07/30/2021 20:17:14 07/28/20 21 07/30/2021 CBC (INCL UDES DIFF/ PLT) hemoglobin 12.3 g/dL 11.7-1 5.5 normal Not Available [address], [address], 07/30/2021 20:17:14 07/28/20 21 07/30/2021 CBC (INCL UDES DIFF/ PLT) hematocrit 36.7 % 35.0-4 5.0 normal Not Available [address], [address], 07/30/2021 20:17:14 07/28/20 21 07/30/2021 CBC (INCL UDES DIFF/ PLT) MCV 98.4 fL 80.0-1 00.0 normal Not Available [address], [address], 07/30/2021 20:17:14 07/28/20 21 07/30/2021 CBC (INCL UDES DIFF/ PLT) MCH 33.0 pg 27.0-3 3.0 normal Not Available [address], [address], 07/30/2021 20:17:14 07/28/20 21 07/30/2021 CBC (INCL UDES DIFF/ PLT) MCHC 33.5 g/dL 32.0-3 6.0 normal Not Available [address], [address], 07/30/2021 20:17:14 07/28/20 21 07/30/2021 CBC (INCL UDES DIFF/ PLT) RDW 11.8 % 11.0-1 5.0 normal Not Available [address], [address], 07/30/2021 20:17:14 07/28/20 21 07/30/2021 CBC (INCL UDES DIFF/ PLT) platelet count 290 thous and/u L 140-40 0 normal Not Available [address], [address], 07/30/2021 20:17:14 07/28/20 21 07/30/2021 CBC (INCL UDES DIFF/ PLT) MPV 11.0 fL 7.5-12 .5 normal Not Available [address], [address], 07/30/2021 20:17:14 07/28/20 21 07/30/2021 CBC (INCL UDES DIFF/ PLT) absolute neutrophils 2615 cells /uL 1500-7 800 normal Not Available [address], [address], 07/30/2021 20:17:14 07/28/20 21 07/30/2021 CBC (INCL UDES DIFF/ PLT) absolute lymphocytes 2936 cells /uL 850-39 00 normal Not Available [address], [address], 07/30/2021 20:17:14 07/28/20 21 07/30/2021 CBC (INCL UDES DIFF/ PLT) absolute monocytes 580 cells /uL 200-95 0 normal Not Available [address], [address], 07/30/2021 20:17:14 07/28/20 21 07/30/2021 CBC (INCL UDES DIFF/ PLT) absolute eosinophils 151 cells /uL 15-500 normal Not Available [address], [address], 07/30/2021 20:17:14 07/28/20 21 07/30/2021 CBC (INCL UDES DIFF/ PLT) absolute basophils 19 cells /uL 0-200 normal Not Available [address], [address], 07/30/2021 20:17:14 07/28/20 21 07/30/2021 CBC (INCL UDES DIFF/ PLT) neutrophils 41.5 % normal Not Available [address], [address], 07/30/2021 20:17:14 07/28/20 21 07/30/2021 CBC (INCL UDES DIFF/ PLT) lymphocytes 46.6 % normal Not Available [address], [address], 07/30/2021 20:17:14 07/28/20 21 07/30/2021 CBC (INCL UDES DIFF/ PLT) monocytes 9.2 % normal Not Available [address], [address], 07/30/2021 20:17:14 07/28/20 21 07/30/2021 CBC (INCL UDES DIFF/ PLT) eosinophils 2.4 % normal Not Available [address], [address], 07/30/2021 20:17:14 07/28/20 21 07/30/2021 CBC (INCL UDES DIFF/ PLT) basophils 0.3 % normal Not Available [address], [address], 07/30/2021 20:17:14 07/28/20 21 07/30/2021 COMPR EHENS VANESSA METAB OLIC PANEL glucose 109 mg/dL 65-99 high Fasti ng refer ence inter carter For someo ne witho ut known diabe tamara, a gluco se value betwe en 100 and 125 mg/dL is consi stent with predi abete s and shoul d be confi rmed with a follo w-up test. Not Available [address], [address], 07/30/2021 20:17:14 07/28/20 21 07/30/2021 COMPR EHENS VANESSA METAB OLIC PANEL urea nitrogen (BUN) 14 mg/dL 7-25 normal Not Available [address], [address], 07/30/2021 20:17:14 07/28/20 21 07/30/2021 COMPR EHENS VANESSA METAB OLIC PANEL creatinine 0.86 mg/dL 0.50-1 .10 normal Not Available [address], [address], 07/30/2021 20:17:14 07/28/20 21 07/30/2021 COMPR EHENS VANESSA METAB OLIC PANEL eGFR non-afr. peruvian 79 mL/mi n/1.7 3m2 > or = 60 normal Not Available [address], [address], 07/30/2021 20:17:14 07/28/20 21 07/30/2021 COMPR EHENS VANESSA METAB OLIC PANEL eGFR 92 mL/mi n/1.7 3m2 > or = 60 normal Not Available [employer] [address], [address], 07/30/2021 20:17:14 07/28/20 21 07/30/2021 COMPR EHENS VANESSA METAB OLIC PANEL BUN/creatini ne ratio not applic able (calc ) 6-22 Not Available [address], [address], 07/30/2021 20:17:14 07/28/20 21 07/30/2021 COMPR EHENS VANESSA METAB OLIC PANEL sodium 140 mmol/ L 135-14 6 normal Not Available [address], [address], 07/30/2021 20:17:14 07/28/20 21 07/30/2021 COMPR EHENS VANESSA METAB OLIC PANEL potassium 4.2 mmol/ L 3.5-5. 3 normal Not Available [address], [address], 07/30/2021 20:17:14 07/28/20 21 07/30/2021 COMPR EHENS VANESSA METAB OLIC PANEL chloride 102 mmol/ L 98-110 normal Not Available [address], [address], 07/30/2021 20:17:14 07/28/20 21 07/30/2021 COMPR EHENS VANESSA METAB OLIC PANEL carbon dioxide 28 mmol/ L 20-32 normal Not Available [address], [address], 07/30/2021 20:17:14 07/28/20 21 07/30/2021 COMPR EHENS VANESSA METAB OLIC PANEL calcium 9.3 mg/dL 8.6-10 .2 normal Not Available [address], [address], 07/30/2021 20:17:14 07/28/20 21 07/30/2021 COMPR EHENS VANESSA METAB OLIC PANEL protein, total 6.2 g/dL 6.1-8. 1 normal Not Available [address], [address], 07/30/2021 20:17:14 07/28/20 21 07/30/2021 COMPR EHENS VANESSA METAB OLIC PANEL albumin 3.9 g/dL 3.6-5. 1 normal Not Available [address], [address], 07/30/2021 20:17:14 07/28/20 21 07/30/2021 COMPR EHENS VANESSA METAB OLIC PANEL globulin 2.3 g/dL_ (calc ) 1.9-3. 7 normal Not Available [address], [address], 07/30/2021 20:17:14 07/28/20 21 07/30/2021 COMPR EHENS VANESSA METAB OLIC PANEL albumin/glob ulin ratio 1.7 (calc ) 1.0-2. 5 normal Not Available [address], [address], 07/30/2021 20:17:14 07/28/20 21 07/30/2021 COMPR EHENS VANESSA METAB OLIC PANEL bilirubin, total 0.4 mg/dL 0.2-1. 2 normal Not Available [address], [address], 07/30/2021 20:17:14 07/28/20 21 07/30/2021 COMPR EHENS VANESSA METAB OLIC PANEL alkaline phosphatase 40 U/L 31-125 normal Not Available [address] [address] [place], [address], 07/30/2021 20:17:14 07/28/20 21 07/30/2021 COMPR EHENS VANESSA METAB OLIC PANEL AST 20 U/L 10-35 normal Not Available [address], [address], 07/30/2021 20:17:14 07/28/20 21 07/30/2021 COMPR EHENS VANESSA METAB OLIC PANEL ALT 24 U/L 6-29 normal Not Available [address], [address], 07/30/2021 20:17:14 07/28/20 21 07/30/2021 TESTO STERO NE, FREE, BIOAV AILAB LE AND TOTAL , MS albumin 4.3 g/dL 3.6-5. 1 Not Available [address], [address], 07/30/2021 20:17:13 07/28/20 21 07/30/2021 TESTO STERO NE, FREE, BIOAV AILAB LE AND TOTAL , MS sex hormone binding globulin 72.2 nmol/ L 17-124 Not Available [address], [address], 07/30/2021 20:17:13 07/28/20 21 07/30/2021 TESTO STERO NE, FREE, BIOAV AILAB LE AND TOTAL , MS testosterone , free 2.0 pg/mL 0.2-5. 0 Not Available [address], [address], 07/30/2021 20:17:13 07/28/20 21 07/30/2021 TESTO STERO NE, FREE, BIOAV AILAB LE AND TOTAL , MS testosterone ,bioavailabl e 3.9 NG/dL 0.5-8. 5 Not Available [address], [address], 07/30/2021 20:17:13 07/28/20 21 07/30/2021 TESTO STERO NE, FREE, BIOAV AILAB LE AND TOTAL , MS testosterone , total, MS 33 NG/dL 2-45 For addit ional infor mike torrez e refer to https ://ed ucati on.qu jerod i-drives. com/f aq/FA Q165 (This link is being provi ded for infor ada nal/e ducat ional purpo ses only. ) (Note ) This test was devel oped and its vikram tical perfo rmanc e clay cteri stics have been deter mined by [facility]. It has not been clear ed or appro hernandez by the FDA. This assay has been valid ated pursu ant to the CLIA regul ation s and is used for clini carline purpo ses. RAEGAN lama n [address] [facility] [address] [place] [address] [phone] Omar hernandez MD Not Available [employer] [facility] [address] [place], [address], 07/30/2021 20:17:13 07/18/2007/21/2022 HEMOG LOBIN A1C hemoglobin A1C 5.9 %_of_ total _HGB <5.7 high For someo ne witho ut known diabe tamara, a hemog lobin A1c value betwe en 5.7% and 6.4% is consi stent with predi abete s and shoul d be confi rmed with a follo w-up test. For someo ne with known diabe tamara, a value <7% indic ates that their diabe tamara is well contr olled . A1c targe ts shoul d be indiv idual ized based on durat ion of diabe tamara, age, comor bid condi tions , and other consi derat ions. This assay resul t is consi stent with an incre ased risk of diabe tamara. Curre ntly, no conse nsus exist s regar ding use of hemog lobin A1c for diagn osis of diabe tamara for child margarita. Not Available [facility] [address], [place], [address], 07/21/2022 08:55:51 07/18/2007/21/2022 TSH+F REE T4 TSH 2.32 mIU/L normal Refer ence Range > or = 20 Years 0.40- 4.50 Pregn octavio Range s First trime ster 0.26- 2.66 Secon d trime ster 0.55- 2.73 Third trime ster 0.43- 2.91 Not Available [facility] [address] [place], [address], 07/21/2022 08:55:51 07/18/20 22 07/21/2022 TSH+F REE T4 T4, free 1.1 NG/dL 0.8-1. 8 normal Not Available [employer] [facility] [address] [place] [address], [address], 07/21/2022 08:55:51 07/18/20 22 07/21/2022 VITAM IN B12/F OLATE , SERUM PANEL vitamin B12 803 pg/mL 200-11 00 normal Not Available [facility] [address], [address], 07/21/2022 08:55:50 07/18/20 22 07/21/2022 VITAM IN B12/F OLATE , SERUM PANEL folate, serum 20.5 NG/mL normal Refer ence Range Low: <3.4 Borde rline : 3.4-5 .4 Betty l: >5.4 Not Available [employer] [address], [address], 07/21/2022 08:55:50 07/18/20 22 07/21/2022 INSUL IN insulin 6.7 uIU/m L normal Refer ence Range < or = 19.6 Risk: Optim al < or = 19.6 Moder ate NA High >19.6 Adult cardi ovasc ular event risk categ ory cut point s (opti mal, moder ate, high) are based on [facility] popul ation data from 08/27 11. This insul in assay shows stron g cross -reac tivit y for some insul in analo gs (lisp ro, aspar t, and glarg ine) and much lower cross -reac tivit y with other s (dete ezra, gluli sine) . Not Available [employer] [facility] [address] [place] [address], [address], 07/21/2022 08:55:50 07/18/20 22 07/21/2022 DHEA SULFA TE DHEA sulfate 110 mcg/d L 15-205 normal DHEA- S value s fall with advan cing age. For refer ence, the refer ence inter vals for 31-40 year old patie nts are: Male: 93-41 5 mcg/d L Femal e: 19-23 7 mcg/d L Not Available [facility] [facility] [address], [address], 07/21/2022 08:55:49 07/18/20 22 07/21/2022 CBC (INCL UDES DIFF/ PLT) white blood cell count 6.3 thous and/u L 3.8-10 .8 normal Not Available [facility] [address], [address], 07/21/2022 08:55:49 07/18/20 22 07/21/2022 CBC (INCL UDES DIFF/ PLT) red blood cell count 4.11 camilla on/uL 3.80-5 .10 normal Not Available [address], [address], 07/21/2022 08:55:49 07/18/20 22 07/21/2022 CBC (INCL UDES DIFF/ PLT) hemoglobin 13.5 g/dL 11.7-1 5.5 normal Not Available [address], [address], 07/21/2022 08:55:49 07/18/20 22 07/21/2022 CBC (INCL UDES DIFF/ PLT) hematocrit 40.7 % 35.0-4 5.0 normal Not Available [facility] [facility] [address], [address], 07/21/2022 08:55:49 07/18/20 22 07/21/2022 CBC (INCL UDES DIFF/ PLT) MCV 99.0 fL 80.0-1 00.0 normal Not Available [facility] [address], [address], 07/21/2022 08:55:49 07/18/20 22 07/21/2022 CBC (INCL UDES DIFF/ PLT) MCH 32.8 pg 27.0-3 3.0 normal Not Available [address], [address], 07/21/2022 08:55:49 07/18/20 22 07/21/2022 CBC (INCL UDES DIFF/ PLT) MCHC 33.2 g/dL 32.0-3 6.0 normal Not Available [address], [address], 07/21/2022 08:55:49 07/18/20 22 07/21/2022 CBC (INCL UDES DIFF/ PLT) RDW 11.6 % 11.0-1 5.0 normal Not Available [address], [address], 07/21/2022 08:55:49 07/18/20 22 07/21/2022 CBC (INCL UDES DIFF/ PLT) platelet count 308 thous and/u L 140-40 0 normal Not Available [address], [address], 07/21/2022 08:55:49 07/18/20 22 07/21/2022 CBC (INCL UDES DIFF/ PLT) MPV 10.2 fL 7.5-12 .5 normal Not Available [address], [address], 07/21/2022 08:55:49 07/18/20 22 07/21/2022 CBC (INCL UDES DIFF/ PLT) absolute neutrophils 2835 cells /uL 1500-7 800 normal Not Available [address], [address], 07/21/2022 08:55:49 07/18/20 22 07/21/2022 CBC (INCL UDES DIFF/ PLT) absolute lymphocytes 2892 cells /uL 850-39 00 normal Not Available [address], [address], 07/21/2022 08:55:49 07/18/20 22 07/21/2022 CBC (INCL UDES DIFF/ PLT) absolute monocytes 435 cells /uL 200-95 0 normal Not Available [address], [address], 07/21/2022 08:55:49 07/18/20 22 07/21/2022 CBC (INCL UDES DIFF/ PLT) absolute eosinophils 120 cells /uL 15-500 normal Not Available [address], [address], 07/21/2022 08:55:49 07/18/2007/21/2022 CBC (INCL UDES DIFF/ PLT) absolute basophils 19 cells /uL 0-200 normal Not Available [address], [address], 07/21/2022 08:55:49 07/18/20 22 07/21/2022 CBC (INCL UDES DIFF/ PLT) neutrophils 45 % normal Not Available [address], [address], 07/21/2022 08:55:49 07/18/20 22 07/21/2022 CBC (INCL UDES DIFF/ PLT) lymphocytes 45.9 % normal Not Available [address], [address], 07/21/2022 08:55:49 07/18/20 22 07/21/2022 CBC (INCL UDES DIFF/ PLT) monocytes 6.9 % normal Not Available [address], [address], 07/21/2022 08:55:49 07/18/20 22 07/21/2022 CBC (INCL UDES DIFF/ PLT) eosinophils 1.9 % normal Not Available [facility] [address] [place], [address], 07/21/2022 08:55:49 07/18/20 22 07/21/2022 CBC (INCL UDES DIFF/ PLT) basophils 0.3 % normal Not Available [address], [address], 07/21/2022 08:55:49 07/18/20 22 07/21/2022 COMPR EHENS VANESSA METAB OLIC PANEL glucose 113 mg/dL 65-99 high Fasti ng refer ence inter carter For someo ne witho ut known diabe tamara, a gluco se value betwe en 100 and 125 mg/dL is consi stent with predi abete s and shoul d be confi rmed with a follo w-up test. Not Available [address], [address], 07/21/2022 08:55:48 07/18/20 22 07/21/2022 COMPR EHENS VANESSA METAB OLIC PANEL urea nitrogen (BUN) 16 mg/dL 7-25 normal Not Available [address], [address], 07/21/2022 08:55:48 07/18/20 22 07/21/2022 COMPR EHENS VANESSA METAB OLIC PANEL creatinine 1.02 mg/dL 0.50-1 .03 normal Not Available [address], [address], 07/21/2022 08:55:48 07/18/20 22 07/21/2022 COMPR EHENS VANESSA METAB OLIC PANEL eGFR 67 mL/mi n/1.7 3m2 > or = 60 normal The eGFR is based on the CKD-E PI 2020 equat ion. To calcu late the new eGFR from a previ ous Creat inine or Cysta tin C resul t, go to https ://iva hurd.rebeka tesfaye.o garrick/gabriela lazo s/ kdoqi /gfr% 5Fcal culat or Not Available [address] [address] [place], [address], 07/21/2022 08:55:48 07/18/20 22 07/21/2022 COMPR EHENS VANESSA METAB OLIC PANEL BUN/creatini ne ratio not applic able (calc ) 6-22 Not Available [address], [address], 07/21/2022 08:55:48 07/18/20 22 07/21/2022 COMPR EHENS VANESSA METAB OLIC PANEL sodium 138 mmol/ L 135-14 6 normal Not Available [address], [address], 07/21/2022 08:55:48 07/18/20 22 07/21/2022 COMPR EHENS VANESSA METAB OLIC PANEL potassium 4.5 mmol/ L 3.5-5. 3 normal Not Available [address], [address], 07/21/2022 08:55:48 07/18/20 22 07/21/2022 COMPR EHENS VANESSA METAB OLIC PANEL chloride 99 mmol/ L 98-110 normal Not Available [address], [address], 07/21/2022 08:55:48 07/18/20 22 07/21/2022 COMPR EHENS VANESSA METAB OLIC PANEL carbon dioxide 31 mmol/ L 20-32 normal Not Available [address], [address], 07/21/2022 08:55:48 07/18/20 22 07/21/2022 COMPR EHENS VANESSA METAB OLIC PANEL calcium 9.7 mg/dL 8.6-10 .4 normal Not Available [address] [place], [address], 07/21/2022 08:55:48 07/18/20 22 07/21/2022 COMPR EHENS VANESSA METAB OLIC PANEL protein, total 7.0 g/dL 6.1-8. 1 normal Not Available [address], [address], 07/21/2022 08:55:48 07/18/20 22 07/21/2022 COMPR EHENS VANESSA METAB OLIC PANEL albumin 4.4 g/dL 3.6-5. 1 normal Not Available [address], [address], 07/21/2022 08:55:48 07/18/20 22 07/21/2022 COMPR EHENS VANESSA METAB OLIC PANEL globulin 2.6 g/dL_ (calc ) 1.9-3. 7 normal Not Available [address], [address], 07/21/2022 08:55:48 07/18/20 22 07/21/2022 COMPR EHENS VANESSA METAB OLIC PANEL albumin/glob ulin ratio 1.7 (calc ) 1.0-2. 5 normal Not Available [address], [address], 07/21/2022 08:55:48 07/18/20 22 07/21/2022 COMPR EHENS VANESSA METAB OLIC PANEL bilirubin, total 0.4 mg/dL 0.2-1. 2 normal Not Available [address], [address], 07/21/2022 08:55:48 07/18/20 22 07/21/2022 COMPR EHENS VANESSA METAB OLIC PANEL alkaline phosphatase 44 U/L 37-153 normal Not Available [facility] [employer] [address], [address], 07/21/2022 08:55:48 07/18/20 22 07/21/2022 COMPR EHENS VANESSA METAB OLIC PANEL AST 18 U/L 10-35 normal Not Available [address] [address] [place], [address], 07/21/2022 08:55:48 07/18/20 22 07/21/2022 COMPR EHENS VANESSA METAB OLIC PANEL ALT 18 U/L 6-29 normal Not Available [address], [address], 07/21/2022 08:55:48 07/18/20 22 07/21/2022 LIPID PANEL , STAND NICOLE cholesterol, total 250 mg/dL <200 high Not Available [address], [address], 07/21/2022 08:55:48 07/18/20 22 07/21/2022 LIPID PANEL , STAND NICOLE HDL cholesterol 62 mg/dL > or = 50 normal Not Available [address], [address], 07/21/2022 08:55:48 07/18/20 22 07/21/2022 LIPID PANEL , STAND NICOLE triglyceride s 143 mg/dL <150 normal Not Available [address], [address], 07/21/2022 08:55:48 07/18/20 22 07/21/2022 LIPID PANEL , STAND NICOLE LDL-choleste rol 161 mg/dL _(carline c) high Refer ence range : <100 Enrike able range <100 mg/dL for prima ry preve ntion ; <70 mg/dL for patie nts with CHD or diabe tic patie nts with > or = 2 CHD risk facto rs. LDL-C is now calcu lated using the Shira n-Hop kins mtu kolton n, which is a valid ated novel metho d jeremiah rosenberg r accur acy than the [employer] equat ion in the estim ation of LDL-C . Shira villaseñor SS et al. GIORGIO. 2013; 310(1 9): 2061- 2068 (http ://ed ucati on.Qu estDi agnos Heart Geneticss. com/f aq/FA Q164) Not Available [address], [address], 07/21/2022 08:55:48 07/18/20 22 07/21/2022 LIPID PANEL , STAND NICOLE chol/HDLC ratio 4.0 (calc ) <5.0 normal Not Available [address], [address], 07/21/2022 08:55:48 07/18/20 22 07/21/2022 LIPID PANEL , STAND NICOLE non HDL cholesterol 188 mg/dL _(carline c) <130 high For patie nts with diabe tamara plus 1 major ASCVD risk facto r, treat ing to a non-H DL-C goal of <100 mg/dL (LDL- C of <70 mg/dL ) is consi dered a thera pemarina c optio n. Not Available [address], [address], 07/21/2022 08:55:48 07/18/20 22 07/21/2022 TESTO STERO NE, FREE, BIOAV AILAB LE AND TOTAL , MS albumin 4.4 g/dL 3.6-5. 1 Not Available [address], [address], 07/21/2022 08:55:47 07/18/20 22 07/21/2022 TESTO STERO NE, FREE, BIOAV AILAB LE AND TOTAL , MS sex hormone binding globulin 32.8 nmol/ L 17-124 Not Available [address], [address], 07/21/2022 08:55:47 07/18/20 22 07/21/2022 TESTO STERO NE, FREE, BIOAV AILAB LE AND TOTAL , MS testosterone , free 1.5 pg/mL 0.2-5. 0 Not Available [address] [place], [address], 07/21/2022 08:55:47 07/18/2007/21/2022 TESTO STERO NE, FREE, BIOAV AILAB LE AND TOTAL , MS testosterone ,bioavailabl e 3.0 NG/dL 0.5-8. 5 Not Available [address] [address] [place], [address], 07/21/2022 08:55:47 07/18/20 22 07/21/2022 TESTO STERO NE, FREE, BIOAV AILAB LE AND TOTAL , MS testosterone , total, MS 13 NG/dL 2-45 For addit ional infor mike torrez refer to https ://ed ucati on.qu estHelios Towers [place]. Dropbox/f aq/FA Q165 (This link is being provi ded for infor ada nal/e ducat ional purpo ses only. ) (Note ) This test was devel oped and its vikram tical perfo rmanc e clay cteri stics have been deter mined by [employer] It has not been clear ed or appro hernandez by the FDA. This assay has been valid ated pursu ant to the CLIA regul ation s and is used for clini carline purpo ses. MDF med fusio n [address] [facility] [address] [facility] [address] [phone] Omar hernandez MD Not Available [facility] [address] [address] [place], [address], 07/21/2022 08:55:47 01/25/20 23 01/30/2023 COMPR EHENS VANESSA METAB OLIC PANEL glucose 117 mg/dL 65-99 high Fasti ng refer ence inter carter For someo ne witho ut known diabe tamara, a gluco se value betwe en 100 and 125 mg/dL is consi stent with predi abete s and shoul d be confi rmed with a follo w-up test. Not Available [facility] [address] [address] [place], [address], 01/30/2023 08:14:40 01/25/20 23 01/30/2023 COMPR EHENS VANESSA METAB OLIC PANEL urea nitrogen (BUN) 16 mg/dL 7-25 normal Not Available [address], [address], 01/30/2023 08:14:40 01/25/20 23 01/30/2023 COMPR EHENS VANESSA METAB OLIC PANEL creatinine 0.98 mg/dL 0.50-1 .03 normal Not Available [address], [address], 01/30/2023 08:14:40 01/25/20 23 01/30/2023 COMPR EHENS VANESSA METAB OLIC PANEL eGFR 70 mL/mi n/1.7 3m2 > or = 60 normal The eGFR is based on the CKD-E PI 2020 equat ion. To calcu late the new eGFR from a previ ous Creat inine or Cysta tin C resul t, go to https ://iva hurd.rebeka tesfaye.o garrick/gabriela lazo s/ kdoqi /gfr% 5Fcal culat or Not Available [address], [address], 01/30/2023 08:14:40 01/25/20 23 01/30/2023 COMPR EHENS VANESSA METAB OLIC PANEL BUN/creatini ne ratio NOT APPLIC ABLE (calc ) 6-22 Not Available [address], [address], 01/30/2023 08:14:40 01/25/20 23 01/30/2023 COMPR EHENS VANESSA METAB OLIC PANEL sodium 137 mmol/ L 135-14 6 normal Not Available [address], [address], 01/30/2023 08:14:40 01/25/20 23 01/30/2023 COMPR EHENS VANESSA METAB OLIC PANEL potassium 4.8 mmol/ L 3.5-5. 3 normal Not Available [address], [address], 01/30/2023 08:14:40 01/25/20 23 01/30/2023 COMPR EHENS VANESSA METAB OLIC PANEL chloride 99 mmol/ L 98-110 normal Not Available [address], [address], 01/30/2023 08:14:40 01/25/20 23 01/30/2023 COMPR EHENS VANESSA METAB OLIC PANEL carbon dioxide 29 mmol/ L 20-32 normal Not Available [address], [address], 01/30/2023 08:14:40 01/25/20 23 01/30/2023 COMPR EHENS VANESSA METAB OLIC PANEL calcium 10.0 mg/dL 8.6-10 .4 normal Not Available [address], [address], 01/30/2023 08:14:40 01/25/20 23 01/30/2023 COMPR EHENS VANESSA METAB OLIC PANEL protein, total 7.0 g/dL 6.1-8. 1 normal Not Available [address], [address], 01/30/2023 08:14:40 01/25/20 23 01/30/2023 COMPR EHENS VANESSA METAB OLIC PANEL albumin 4.6 g/dL 3.6-5. 1 normal Not Available [address], [address], 01/30/2023 08:14:40 01/25/20 23 01/30/2023 COMPR EHENS VANESSA METAB OLIC PANEL globulin 2.4 g/dL_ (calc ) 1.9-3. 7 normal Not Available [address], [address], 01/30/2023 08:14:40 01/25/20 23 01/30/2023 COMPR EHENS VANESSA METAB OLIC PANEL albumin/glob ulin ratio 1.9 (calc ) 1.0-2. 5 normal Not Available [address], [address], 01/30/2023 08:14:40 01/25/20 23 01/30/2023 COMPR EHENS VANESSA METAB OLIC PANEL bilirubin, total 0.5 mg/dL 0.2-1. 2 normal Not Available [address], [address], 01/30/2023 08:14:40 01/25/20 23 01/30/2023 COMPR EHENS VANESSA METAB OLIC PANEL alkaline phosphatase 42 U/L 37-153 normal Not Available [address], [address], 01/30/2023 08:14:40 01/25/20 23 01/30/2023 COMPR EHENS VANESSA METAB OLIC PANEL AST 22 U/L 10-35 normal Not Available [address], [address], 01/30/2023 08:14:40 01/25/20 23 01/30/2023 COMPR EHENS VANESSA METAB OLIC PANEL ALT 22 U/L 6-29 normal Not Available [address], [address], 01/30/2023 08:14:40 01/25/20 23 01/30/2023 DHEA SULFA TE DHEA sulfate 154 mcg/d L 5-167 normal DHEA- S value s fall with advan cing age. For refer ence, the refer ence inter vals for 31-40 year old patie nts are: Male: 93-41 5 mcg/d L Femal e: 19-23 7 mcg/d L Not Available [address], [place], [address], 01/30/2023 08:14:42 01/25/2001/30/2023 INSUL IN insulin 8.2 uIU/m L normal Refer ence Range < or = 18.4 Risk: Optim al < or = 18.4 Moder ate NA High >18.4 Adult cardi ovasc ular event risk categ ory cut point s (opti mal, moder ate, high) are based on Insul in Refer ence Inter carter studi es perfo rmed at [facility] in 2021. Not Available [employer] [address], [address], 01/30/2023 08:14:42 01/25/2001/30/2023 T3, FREE T3, free 3.2 pg/mL 2.3-4. 2 normal Not Available [employer] [address], [address], 01/30/2023 08:14:43 01/25/2001/30/2023 TSH+F REE T4 TSH 3.23 mIU/L normal Refer ence Range > or = 20 Years 0.40- 4.50 Pregn octavio Range s First trime ster 0.26- 2.66 Secon d trime ster 0.55- 2.73 Third trime ster 0.43- 2.91 Not Available [employer] [address], [address], 01/30/2023 08:14:44 01/25/2001/30/2023 TSH+F REE T4 T4, free 1.2 NG/dL 0.8-1. 8 normal Not Available [employer] [address], [address], 01/30/2023 08:14:44 01/25/2001/30/2023 HEMOG LOBIN A1C hemoglobin A1C 5.7 %_of_ total _HGB <5.7 high For someo ne witho ut known diabe tamara, a hemog lobin A1c value betwe en 5.7% and 6.4% is consi stent with predi abete s and shoul d be confi rmed with a follo w-up test. For someo ne with known diabe tamara, a value <7% indic ates that their diabe tamara is well contr olled . A1c targe ts shoul d be indiv idual ized based on durat ion of diabe tamara, age, comor bid condi tions , and other consi derat ions. This assay resul t is consi stent with an incre ased risk of diabe tamara. Curre ntly, no conse nsus exist s regar ding use of hemog lobin A1c for diagn osis of diabe tamara for child margarita. Not Available [facility] [address] [place], [address], 01/30/2023 08:14:45 01/25/2001/30/2023 TESTO STERO NE, FREE (DIAL YSIS) AND TOTAL ,MS testosterone , total, MS 13 NG/dL 2-45 For addit ional infor mike torrez e refer to https ://ed ucati on.qu estHelios Towers [place]. com/f aq/FA Q165 (This link is being provi ded for infor matrupinder nal/e ducat ional purpo ses only. ) (Note ) This test was devel oped and its vikram tical perfo rmanc e clay cteri stics have been deter mined by [employer] It has not been clear ed or appro hernandez by the FDA. This assay has been valid ated pursu ant to the CLIA regul ation s and is used for clini carline purpo ses. Not Available [facility] [address], [place], [address], 01/30/2023 08:14:45 01/25/2001/30/2023 TESTO STERO NE, FREE (DIAL YSIS) AND TOTAL ,MS testosterone , free 1.4 pg/mL 0.1-6. 4 (Note ) This test was devel oped and its vikram tical perfo rmanc e clay cteri stics have been deter mined by [employer] It has not been clear ed or appro hernandez by the FDA. This assay has been valid ated pursu ant to the CLIA regul ation s and is used for clini carline purpo ses. RAEGAN lama n [address] [facility] [address] [place] [address] [phone] Omar hernandez MD Not Available [employer] [facility] [address] [address], [place], [address], 01/30/2023 08:14:45 07/19/20 21 07/19/2021 [place], thyro id No observ ation record ed. [id number] [facility] [address], [place], [address], 11/06/2022 13:15:51 Result Notes None recorded. Problems Name Problem SNOMED Code Status Onset Date Resolution Date Notes Provider Name and Address Organization Details Recorded Time Current knee cartilage tear Active Not Available [facility] 3 13:12:53 Current tear of medial cartilage AND/OR meniscus of knee Active Not Available [facility] 3 13:12:53 Current tear of lateral cartilage AND/OR meniscus of knee Active Not Available [facility] 3 13:12:53 Knee pain Active Not Available [facility] 3 13:12:53 Osteoarthriti s 451635552 Active Not Available [facility] 3 13:12:53 Chondromalaci a 02331106 Active Not Available [facility] 3 13:12:53 Derangement of knee 54622130 Active Not Available [facility] 3 13:12:53 Loose body in knee 27857980 Active Not Available [facility] 3 13:12:54 Fatigue 08171421 Active 2022 SHERMAN Hinojosa, [place] [facility] 3 14:53:03 Impaired fasting glycemia 022936114 Active 2022 SHERMAN Hinojosa, [facility] [employer] [facility] 3 14:53:40 Female hirsutism 88823767 Active 2022 SHERMAN Hinojosa, [facility] [employer] [facility] 3 14:53:58 Prediabetes 941311221 Active 2022 Sheeba Farnsworth MD [address] 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, [facility] [address], [place], [address] , [facility] [employer] [facility] 3 12:46:25 Problem Notes None recorded. Procedures Surgical History Date Name Laterality Status Provider Name and Address Organization Details Recorded Time Lumbar Spine Surgery completed Not Available [facility] 11/06/2022 13:12:17 endometrial biopsy completed Not Available [facility] 11/06/2022 13:12:17 Knee completed Not Available [facility] 09/2022 13:12:17 Imaging Results None recorded. Procedure Notes None recorded. Medical Equipment None Reported. Allergies No known drug allergies Medications Name Sig Start Date Stop Date Status Note LastModified by Organization Details LastModified Time amoxicillin 500 mg capsule 06/12 completed Not Available Not Available Not Available paroxetine 10 mg tablet 06/12 completed Not Available Not Available Not Available clindamycin HCl 300 mg capsule 06/12 completed Not Available Not Available Not Available hydrocodone 5 mg-acetamino phen 325 mg tablet 06/12 completed Not Available Not Available Not Available spironolacto ne 100 mg tablet TAKE 2 TABLETS DAILY IN THE MORNING 2022 active Not Available Not Available Not Avai lable phentermine 37.5 mg tablet TAKE 1 TABLET BY MOUTH DAILY 06/12 completed Not Available Not Available Not Available venlafaxine 37.5 mg tablet 06/12 completed Not Available Not Available Not Available estradiol 0.5 mg tablet 09/03 completed Not Available Not Available Not Available phentermine 37.5 mg capsule TAKE ONE CAPSULE BY MOUTH EVERY DAY 06/12 completed Not Available Not Available Not Available amoxicillin 875 mg-potassium clavulanate 125 mg tablet TAKE 1 TABLET BY MOUTH EVERY 12 HOURS UNTIL ALL GONE 06/12 completed Not Available Not Available Not Available bupropion HCl XL 300 mg 24 hr tablet, extended release active Not Available Not Available Not Available doxycycline monohydrate 40 mg capsule,imme diate - delay release 06/12 completed Not Available Not Available Not Available Aczone 7.5 % topical gel with pump 06/12 completed Not Available Not Available Not Available Fluvirin 45 mcg (15 mcg x 3)/0.5 mL intramuscula r suspension ADM 0.5ML IM UTD 01/23 completed Not Available Not Available Not Available Flucelvax Quad (PF) 60 mcg (15 mcg x 4)/0.5 mL IM syringe ADM 0.5ML IM UTD 01/23 completed Not Available Not Available Not Available Vitals Date Recorded Body weight Body temperature Respiratory rate Heart rate Systolic And Diastolic Provider Name and Address Organization Details Last Updated DateTime 3 10124.3 g 97.4 [degF] 18 /min 72 /min 118/73 mm[Hg] SHERMAN Mercado [place] - [facility] [employer] [facility] 3 12:17:32 Date Recorded Body mass index (BMI) Body height Oxygen saturation Oxygen saturation in Arterial blood by Pulse oximetry Heart rate Body temperature Body weight Systolic And Diastolic Provider Name and Address Organization Details Last Updated DateTime 1 29.2 kg/m2 172.72 cm 99 % 99 % 73 /min 98.3 [degF] 00059.7 4 g 138/64 mm[Hg] Not Available [facility] 3 13:12:22 Social History Question Answer Notes LastModified by Organizat ion Details LastModified Time Tobacco Smoking Status Never Smoker Not Available [facility] 11/06/2022 13:12:04 What Is Your Level Of Caffeine Consumption? Moderate [id number] Information not available 11/06/2022 In The 14 Days Before Symptom Onset, Have You Had Close Contact With A Laboratory-confirm ed COVID-19 While That Case Was Ill? No [id number] Information not available 11/06/2022 In The 14 Days Before Symptom Onset, Have You Had Close Contact With A Person Who Is Under Investigation For COVID-19 While That Person Was Ill? No [id number] Information not available 11/06/2022 What Is The Highest Grade Or Level Of School You Have Completed Or The Highest Degree You Have Received? AD80317-8 [id number] Information not available 11/06/2022 What Is Your Relationship Status? [id number] Information not available 11/06/2022 Have You Recently Traveled Abroad? No [id number] Information not available 11/06/2022 Sex: Female Functional Status Question Answer Note LastModified by Organizat ion Details LastModified Time Do you use any illicit or recreational drugs? No [id number] Information not available 11/06/2022 Do you or have you ever used any other forms of tobacco or nicotine? No [id number] Information not available 11/06/2022 What is your level of alcohol consumption? 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 Family History Relationship Description Onset Age of this Age Resolved Age Notes LastModified by Organization Details LastModified Time Mother Malignant tumor of breast [id number] Not available 11/06/2022 13:12:17 Sister Malignant tumor of breast [id number] Not available 11/06/2022 13:12:17 Father Malignant neoplasm of lung [id number] Not available 11/06/2022 13:12:17 Medical History Condition Response Low Testosterone Y Gynecological HistoryNo gynecological history recorded. Obstetrics History GPAL:G 0 P 0 0 0 0 Past Encounters Encounter ID Performer Location Encounter Start Date Encounter Closed Date Diagnosis/Indication Diagnosis SNOMED-CT Code Diagnosis ICD10 Code Diagnosis Note [id number] MD [facility] [address] [place] [address] 06/12/2021 00:00:00 06/12/2021 13:55:43 [id number] MD [facility] [address] [place] [address] 09/03/2021 00:00:00 09/03/2021 10:56:47 [id number] Sheeba Farnsworth MD [facility] [address] [place] [address] 01/29/2023 12:09:31 01/29/2023 12:59:05 Prediabetes 571004245 R73.03 a1c of 5.9% from Nov- Discussed carb counting and how to read food labels. Recommende d patient to utilize the diabetesfo IPXI.Dropbox from the ADA website to help with food preparatio n as this presents ideal carb content per meal so this will make carb counting much easier for patient. Recommende d she incorporat e natural insulin deburrer s such as pears, apples, cinnamon, karyna and sweet potatoes to help mobilize her endogenous insulin. Recommende d up to 150 minutes of moderate level activity/e xercise weekly. Perimenopa usal disorder 662084196 N95.9 Send for hormone panel as patient having cycles, heavy/pain ful breast fullness prior to cycles and decreased sleep-may benefit from progestero ne therapy. Cholesterol screening 27 9498356 Z13.220 Send for lipid panel to monitor for any concern. Spent up to 26 minutes preparing to see the patient (eg, review of tests), obtaining and/or reviewing separately obtained history, performing a medically appropriat e examinatio n and evaluation , counseling and educating the patient, ordering medication s, tests, along with documentin g clinical informatio n in the electronic health record, independen tly interpreti ng results and communicat ing results to the patient. RTC in 6 months. Patient was provided a handwritte n lab order which contains our fax number. If she chooses to go outside of the [facility] system to obtain labwork she was advised to provide our fax number and my informatio n to the lab she will be obtaining labwork from in order to have her labs properly forwarded over for me to review so there is no loss of follow up due to use of outside network. She was also advised to contact our clinic informing us that she has completed her labwork so we are aware we will need to reach out to the appropriat e laboratory to request her results be forwarded to us so I might have the ability to review and make further medical decision making in her case. She voiced understand ing. Health Concerns Section Related Observation LastModified by Organization Detai ls LastModified Time None Recorded Concern Status LastModified by Organization Details LastModified Time None Recorded Advance Directives Directive None Recorded Payers Insurance Date Sequence Insurance Name Policy Number Policy [place] Covered Member ID [place] Member ID Guarantor Name 01/29/2023 1 [facility] () Haley Mccloud [id number] Haley Mccloud Notes Date Note Type Note Provider Name and Address Organization Details Recorded Time 01/29/2023 text/html 52 yo female com es in to re-establish care in management of prediabetes (A1C of 5.9% from 07/30), hirsutism and fatigue. last seen in 08/2021 at that time we recommended natural insulin sensitizers and spironolactone 200 mg daily. labs completed last Friday but not released as they are not finalized. She has no issues with hypotension or polyuria. She has lost five pounds since last visit. She is tolerating spironolactone well and has no further facial hair and has had increased hair growth on head. sugars are running 98 mg/dL up to 138 mg/dL with aver of 108 mg/dL She is still having cycles that are heavy- spotting every 8-10 weeks. She gets bloated and has pain in her left breast which goes away after her cycle labs from 07/30:a1c 5.9%TSH of 2.32 uIU/mLFT4 of 1.1 ng/dLB12/folate normalinsulin 6.7 uU/mldheas 110 ug/mLh/h normallft normalglucose 113 mg/dL250/142/62/161t estosterone 13 ng/dL Sheeba Farnsworth MD [address] [facility], [facility] [address], [place], [address], [facility] [employer] 01/29/2023 13:11:14 OBGyn Episode No OBEpisode recorded.
[2025-03-18 11:44] LABS: Hematocrit 42.5 % (37.0-47.0); Hemoglobin 14.0 g/dL (12.0-15.0); Immature Granulocyte Percent A 0.2 % (0-0.5); Lymphocytes Absolute Auto 2.48 K/mm3 (0.9-3.2); Mean Corpuscular HGB Conc 32.9 g/dl (32-36); Mean Corpuscular Hemoglobin 32.8 pg (26-34); Mean Corpuscular Volume 99.5 fl (80-100); Nucleated Red Blood Cells Absolute Auto 0.000 K/mm3 (0.0-0.012); Nucleated Red Blood Cells Perc 0.0 % (0.0-0.2); Platelet Count Result 263 k/mm3 (150-375); Red Blood Count 4.27 M/mm3 (4.2-5.4); White Blood Count 6.0 K/mm3 (4.5-10.0)
[2025-03-18 12:20] LABS: Alanine Aminotransferase 23 U/L (6-35); Albumin Level 4.4 g/dL (3.5-5.1); Alkaline Phosphatase 56 U/L (38-126); Anion Gap 6 mmol/L (4-12); Aspartate Amino Transferase 40 U/L (14-36); Bilirubin,Total 0.5 mg/dL (0.2-1.3); Blood Urea Nitrogen 20 mg/dL (7-17); Calcium 9.4 mg/dL (8.4-10.2); Carbon Dioxide 30 mmol/L (22-30); Chloride 101 mmol/L (98-107); Cholesterol 271 mg/dL (0-200); Estimated Glomerular Filt Rate 59; Glucose 132 mg/dL (65-110); HDL Direct 69 mg/dL; Potassium 4.9 mmol/L (3.4-5.0); Sodium 137 mmol/L (137-145); Total Protein 7.6 g/dL (6.3-8.2); Triglycerides 150 mg/dL (<150)
[2025-03-18 13:10] LABS: Thyroid Stimulating Hormone 2.270 uIU/mL (0.465-4.680)
[2025-03-18 15:45] LABS: Hemoglobin A1C 6.2 % (<5.7)
== END 2025-03-18 11:22 | disposition home or self-care (01) ==
PROVIDERS: Clinical Nurse Specialist; PCP Internal Medicine; Visit Provider Internal Medicine
DX: Z13.29 Encounter for screening for other suspected endocrine disorder (principal); R79.89 Other specified abnormal findings of blood chemistry; E55.9 Vitamin D deficiency, unspecified; E78.5 Hyperlipidemia, unspecified
CPT/HCPCS: 36415; 80053; 80061; 82306; 83036; 84443; 85025